=== PATIENT | female | born 1960 | race Caucasian/White ===

== ENCOUNTER 2022-05-16 11:52 | Outpatient (CLI) | payer BC, SELFPAY ==
--- NOTE | 2022-05-16 12:47 | ECG_ITS ---
Measurements Intervals [place] Rate: 66 P: 29 OH: 167 QRS: -8 QRSD: 93 T: 18 QT: 384 QTc: 404 Interpretive Statements SINUS RHYTHM BORDERLINE R WAVE PROGRESSION, ANTERIOR LEADS BORDERLINE ECG NO PREVIOUS ECG AVAILABLE FOR COMPARISON Electronically Signed On 05-16-2022 13:18:12 CDT by Jn Alcaraz D.O.
[2022-05-16 13:23] LABS: Basophils Percent Auto 0.4 % (0.2-1.2); Eosinophils Absolute Auto 0.1 K/mm3 (0-0.3); Eosinophils Percent Auto 1.4 % (0-4.4); Hematocrit 39.9 % (37.0-47.0); Hemoglobin 13.2 g/dL (12.0-15.0); Immature Granulocyte Absolute 0.02 K/mm3 (0.00-0.031); Immature Granulocyte Percent A 0.3 % (0-0.5); Lymphocytes Absolute Auto 1.08 K/mm3 (0.9-3.2); Lymphocytes Percent Auto 15.7 % (18.3-44.2); Mean Corpuscular HGB Conc 33.1 g/dl (32-36); Mean Corpuscular Hemoglobin 30.2 pg (26-34); Mean Corpuscular Volume 91.3 fl (80-100); Mean Platelet Volume 9.7 fl (7.4-10.4); Monocytes Absolute Auto 0.3 K/mm3 (0.1-0.6); Monocytes Percent Auto 4.5 % (2.6-8.5); Neutrophils Absolute Auto 5.4 K/mm3 (1.3-6.7); Neutrophils Percent Auto 77.7 % (45.5-73.1); Platelet Count Result 205 k/mm3 (150-375); Red Blood Count 4.37 M/mm3 (4.2-5.4); Red Cell Distribution Width 12.4 % (11.5-14.5); White Blood Count 6.9 K/mm3 (4.5-10.0)
[2022-05-16 13:33] LABS: Prothrombin Time 12.7 Seconds (11.1-14.7)
[2022-05-16 13:34] LABS: Alanine Aminotransferase 16 U/L (6-35); Albumin Level 4.2 g/dL (3.5-5.1); Alkaline Phosphatase 81 U/L (38-126); Anion Gap 7 mmol/L (8-16); Aspartate Amino Transferase 24 U/L (14-36); Bilirubin,Total 0.6 mg/dL (0.2-1.3); Blood Urea Nitrogen 17 mg/dL (7-17); Calcium 9.5 mg/dL (8.4-10.2); Carbon Dioxide 26 mmol/L (22-30); Chloride 105 mmol/L (98-107); Estimated Glomerular Filt Rate > 60; Glucose 89 mg/dL (65-110); Partial Thromboplastin Time 26.8 SECONDS (22.3-36.8); Sodium 138 mmol/L (137-145)
== END 2022-05-16 11:53 | disposition home or self-care (01) ==
LOC: ANHSURGERY 12:02
PROVIDERS: PCP Family Medicine; Visit Provider Urology
DX: N81.9 Female genital prolapse, unspecified (principal); Z01.818 Encounter for other preprocedural examination; R94.31 Abnormal electrocardiogram [ECG] [EKG]
CPT/HCPCS: 36415; 80053; 85025; 85610; 85730; 86850; 86900; 86901; 87077; 87086; 87088; 87186; 93005

== ENCOUNTER 2022-05-22 02:39 | Day surgery (SDC) | payer BC, SELFPAY ==
--- NOTE | 2022-05-16 12:00 | PC.NURSE ---
PRE-OP INSTRUCTIONS, PLEASE READ CAREFULLY Report to the Outpatient Waiting Room, entrance under the green pavilion located off [facility], at time _0930_ on date _05/22/22_. OR Time: _1130_. - You and your visitor will be asked to self-screen and do not enter if you have any COVID symptoms. - Only one visitor and NO children visitors are allowed at this time. - The patient visitor is requested to leave or wait in car when not with patient due to restrictions. - A mask is required within the hospital. Patients may have clear liquids (water, carbonated beverages, clear teas, apple juice) until 3 hours prior to surgery (0830 AM) with a maximum of 20 ounces. - No food from midnight until time of surgery Take the following medications with a SIP of water the morning of surgery: _TYLENOL IF NEEDED_ Medications to discontinue per DR. SWEET - _MELOXICAM & VITAMIN D3, WEEK BEFORE SURGERY (PER PT), Date to take last dose 05/16/22_ Please no make-up, nail cape verdean, hairspray, perfume, deodorant, or body powder the day of surgery. No jewelry (including any body piercings) or valuables the day of surgery, leave them at home. Please take a shower or bath the night before, or the morning of, surgery with an antibacterial soap. Wear comfortable, loose fitting clothing. - Jewelry must be removed prior to entering the operating room. Rings and piercings that are not removed may be cut off. - The hospital will not accept responsibility for valuables. - Please leave all valuables, including medications, at home the day of surgery. If you are going home after surgery, a licensed bull driver must drive you home. - NO public transportation without another adult. - We recommend that an adult stay with you for 24 hours following discharge. - We also recommend that you do not drive, make important decision, drink alcoholic beverages, or take any drugs that were not prescribed by your health care provider for at least 24 hours after your discharge time. Follow any additional instructions given to you from your surgeon. If you or anyone in your household have experienced Covid symptoms in the past week, please notify your surgeon or the nurse liaison at the phone number below for possible testing. Instructions given to ____PT and asked if any additional questions and then verbalized understanding. Patient advised to call surgeon office or pre surgery nurse liaison [phone] if any additional questions.
[2022-05-16 12:23] VITALS: BP 140/96; PULSE 84; RESP 20; TEMP 36.8; O2SAT 98; BMI 40.5
--- NOTE | 2022-05-19 08:10 | PM.IMHP ---
H&P: HPI History of Present Illness Date/Time: 05/19/22 08:10 Chief Complaint: Prolapse Narrative: 61-year-old patient. She is status post hysterectomy. She has vaginal vault prolapse. She has no stress incontinence Review of Systems Review of Systems: All systems reviewed & are unremarkable except as noted in HPI and below [facility] Social History Social History Smoking packs per day: 0.5 Smoking cigarettes per day: 10.0 Years smoked: 5 Smoking pack-years: 2.50 Smoking status: Former smoker Tobacco type: cigarettes Second hand tobacco smoke exposure: No Smoking end date: 09/10/99 Alcohol intake: current Alcohol use details: STATES 2/MONTH Substance use type: does not use Additional living arrangements comments: SON LIVES WITH PT Spiritual care concerns: No Meds Home Medications and Allergies Home Medications Medication Instructions Recorded Confirmed Type cholecalciferol (vitamin D3) 125 125 mcg PO QAM 05/16/22 05/16/22 History mcg (5,000 unit) capsule famotidine 20 mg tablet (Pepcid) 20 mg PO DAILY PRN REFLUX 05/16/22 05/16/22 History meloxicam 15 mg tablet 15 mg QAM 05/16/22 05/16/22 History Allergies Allergy/AdvReac Type Severity Reaction Status Date / Time No Known Allergies Allergy Verified 05/16/22 12:19 Exam Narrative: No acute distress Normal breathing Alert orient x3 Cystocele a + 4 Loss of apical support at +3 Assessment and Plan Assessment and plan (1) Vaginal vault prolapse: Code(s): N81.9 - Female genital prolapse, unspecified Status: Acute Assessment and Plan: Plan is for robotic sacral colpopexy. She understands the risks of bleeding, infection, damage to surrounding organs, damage to the urinary tract, bowel injury, bowel obstruction, postoperative voiding dysfunction including incontinence and retention, recurrence of prolapse, mesh related complications including exposure and extrusion, dyspareunia. She agrees to proceed
[2022-05-22] VITALS (11 sets, daily range): BP systolic 105–140; BP diastolic 42–70; PULSE 56–86; RESP 12–18; TEMP 36.1–36.2; O2SAT 94–100
[2022-05-22] MEDS: LACTATED RINGERS 1,000 ML 30 ML IV CONT ×2 (06:33→10:16)
--- NOTE | 2022-05-22 07:10 | P.PNAN_ITS ---
Anes - Initial Pre Proc Eval Procedure: Operation Date: 05/22/22 07:30 Proposed Procedures p Robotic Sacrocolpopexy - Torin Resendiz MD s Urethral Sling - Torin Resendiz MD Date/Time: 05/22/22 07:10 Surgeon: Torin Resendiz MD Pre Op Diagnosis: prolapse vaginal vault, rectocele, cystocele, inco Patient Data Age: 61 Gender: F Height: 1.6 m Weight: 99.35 kg Last Vital Signs Temp 36.1 C L 05/22/22 06:11 Pulse 86 05/22/22 06:11 Resp 18 05/22/22 06:11 BP 140/70 05/22/22 06:11 Pulse Ox 99 05/22/22 06:11 O2 Del Method Room Air 05/22/22 06:11 Allergies Allergy/AdvReac Type Severity Reaction Status Date / Time No Known Allergies Allergy Verified 05/22/22 06:52 Home Medications Medication Instructions Recorded Confirmed Type cholecalciferol (vitamin D3) 125 125 mcg PO QAM 05/16/22 05/22/22 History mcg (5,000 unit) capsule famotidine 20 mg tablet (Pepcid) 20 mg PO DAILY PRN REFLUX 05/16/22 05/22/22 History meloxicam 15 mg tablet 15 mg QAM 05/16/22 05/22/22 History Patient hx anesthesia problems: none Family hx anesthesia problems: none Results Review: All pre-operative results and documents have been reviewed as part of the pre- operative evaluation. [facility], [facility] Past Medical History Medical History (Updated 05/22/22 @ 07:11 by Nagi Ramos MD) Obesity Surgical History Surgical History (Updated 05/22/22 @ 07:11 by Nagi Ramos MD) History of total hip arthroplasty Hx of cystoscopy Social History Social History Smoking packs per day: 0.5 Smoking cigarettes per day: 10.0 Years smoked: 5 Smoking pack-years: 2.50 Smoking status: Former smoker Tobacco type: cigarettes Second hand tobacco smoke exposure: No Smoking end date: 09/10/99 Alcohol intake: current Alcohol use details: STATES 2/MONTH Substance use type: does not use Living arrangements: with family Additional living arrangements comments: SON LIVES WITH PT Spiritual care concerns: No Anes - Eval Final PreProcedure Day of Procedure 05/22/22 07:10 Patient weight: obese Heart: regular rate and rhythm Lungs: clear to auscultation Airway: Mallampati scale class II Neurological: alert and oriented Last oral intake: >/= 8 hours ASA classification: II Emergent: no Anesthetic plan: proceed Anesthesia type and monitoring: general ETT and standard monitoring Results Review: All pre-operative results and documents have been reviewed as part of the pre- operative evaluation. Informed Consent: The patient's anesthetic plan and its attendant risks and benefits were discussed with the patient/family/POA. Questions were solicited and answers provided to the satisfaction of the patient/family/POA.
--- NOTE | 2022-05-22 07:13 | WPDHPUPDATE1 ---
History and Physical Update Update Date/Time: 05/22/22 07:13 History and Physical has been reviewed, including an updated exam of the patient. There are NO changes in the patient's condition. Risks, benefits, and alternatives have been discussed and questions answered. Patient agrees to proceed with procedure.
[2022-05-22] MEDS: ceFAZolin 2 GM/D5W 50 ML 2 GM/50 ML BAG IVPB (07:30)
[2022-05-22] MEDS: levoFLOXacin 500 MG/D5W 100 ML 500 MG/100 ML BAG 100 MG IVPB (07:44)
--- NOTE | 2022-05-22 10:20 | W.PM.PROC2 ---
Procedure Note - Detailed Date of Procedure 05/22/22 Pre-op Diagnosis prolapse vaginal vault Post-op Diagnosis Same Procedure Performed Robotic assisted laparoscopic sacral colpopexy Cystoscopy Surgeon Torin Resendiz MD Anesthesia General Indications This is a woman with post hysterectomy vaginal vault prolapse. She desires surgical correction. She understands risks of bleeding, infection, diskitis, damage to surrounding organs, damage to the bowel or urinary tract, recurrence of prolapse, dyspareunia, vaginal mesh exposure, urinary tract mesh exposure, obstructive voiding requiring secondary procedure, hip and leg pain, and other perioperative intraoperative and postoperative complications. She has no stress incontinence by history or by urodynamics. We will not be performing a concomitant stress incontinence procedure. She does understand the risks of postoperative stress incontinence which may require another procedure. She is to proceed Findings See below Description of Procedure She was correctly identified. Informed consent obtained. She is brought to the operating room. She was given general anesthesia. She was placed in the lithotomy position. She was given appropriate perioperative antibiotics. She was prepped and draped in a sterile fashion. A time-out performed. I anesthetized the skin 3 fingerbreadths cephalad to the umbilicus. I incised the skin. I located the fascia. I grasped the fascia with Deion clamps. I incised the fascia sharply and a Mullins type technique. I placed Vicryl sutures for later fascial closure. I placed a midline trocar. Under direct vision placed 2 additional trocars in the right upper quadrant and 2 additional trocars in the left upper quadrant. She was placed in steep Trendelenburg. The robot was docked. I sat at the console. With the Sizer in the vagina and created a plane on the anterior and posterior vaginal wall for several cm taking great care not to injure the vagina, bladder, or rectum. Of note the bladder was very enlarged and densely adherent onto the anterior vaginal wall. There was no sign of any injury to either organ. I introduced the mesh into the vagina. I sewed the anterior leaflet of mesh on the anterior vaginal wall and posterior leaf of the mesh on the posterior vaginal wall with several sutures of 2 0 Wilson-Russ taking great care not to go through and through. I then opened up the peritoneum over the sacral promontory. I carried this incision into the cul-de-sac. I freed up the edges for later retroperitonealization of the mesh. I located the anterior longitudinal ligament of the sacrum. I cleaned off any fatty tissues. I then tensioned my mesh appropriately. I did a vaginal exam to ensure prolapse reduction without undue tension. I then sewed the proximal leaflet of mesh onto the ligament with several sutures of 2 0 Wilson-Russ. I then used a 2 0 Monocryl to meticulously retroperitonealized all mesh. I allowed the colon to go back into its normal anatomic location. There is no sign of impingement. He had an was then exited. Fascial sutures were closed. I placed additional sutures to fully close the fascia. The wounds were all irrigated and closed with 4 O Monocryl and skin glue. She was then repositioned for cystoscopy. The bladder showed no evidence of surgical artifact or tumor. There was some inflammation consistent with a recent urinary tract infection. Patency of both ureters was documented by either seeing clear yellow urine from the right ureter or plasty in a guidewire up the left ureter. The Donnelly catheter was replaced. She was awakened and transferred to the PACU in stable condition. Implants Sacral colpopexy mesh Urethral sling Packing No Pathology None sent Complications No immediate complications Condition Stable Disposition PACU
--- NOTE | 2022-05-22 10:55 | SUR.PHASEI ---
1055: Simple mask removed.
== END 2022-05-22 13:05 | disposition home or self-care (01) ==
PROVIDERS: PCP Family Medicine; Visit Provider Urology
PROC: (CPT 57425; principal; 2022-05-22 07:30)
DX: N99.3 Prolapse of vaginal vault after hysterectomy (principal); Z87.891 Personal history of nicotine dependence; E66.9 Obesity, unspecified; Z68.38 Body mass index [BMI] 38.0-38.9, adult
CPT/HCPCS: 57425; S2900; 36415; 80053; 85025; 85610; 85730; 86850; 86900; 86901; 87077; 87086; 87088; 87186; 93005; A9270; C1758; C1769; C1781; C9290; J0330; J0690; J1100; J1956; J2250; J2370; J2405; J2704; J2710; J3010; J7030; J7120

== ENCOUNTER 2023-06-07 09:58 | Outpatient (CLI) | payer BC, SELFPAY | END 2023-06-07 09:59 | disposition home or self-care (01) | LOC: ANHSURGERY 10:02 | PROVIDERS: PCP Family Medicine; Visit Provider Urology | DX: N36.42 Intrinsic sphincter deficiency (ISD) (principal) | CPT/HCPCS: 87086 ==

== ENCOUNTER 2023-06-15 01:07 | Day surgery (SDC) | payer BC, SELFPAY ==
[2023-06-05 11:21] VITALS: BMI 39.9
--- NOTE | 2023-06-05 11:29 | PC.NURSE ---
Report to the Outpatient Waiting Room, entrance under the green pavilion located off [facility], at time 6:15 on date 06/15/23. Planned Procedure Time: 8:15. Time changes happen often and if your time is changed the preop area will call you the afternoon before. - You and your visitor will be asked to self-screen and do not enter if you have any COVID symptoms. - A mask is optional within the hospital at this time. Patients may have clear liquids (water, carbonated beverages, clear teas, apple juice) until 3 hours prior to surgery with a maximum of 20 ounces. - No food from midnight until time of surgery Take the following medications with a SIP of water the morning of surgery: NONE DO NOT STOP ANY OF YOUR OTHER PRESCRIPTION MEDICATIONS PRIOR TO SURGERY ?EXCEPT THE FOLLOWING Medications to discontinue per physician: MELOXICAM Date to take last dose: PER DR. SWEET Please no make-up, nail nepalese, hairspray, perfume, deodorant, or body powder the day of surgery. No jewelry (including any body piercings) or valuables the day of surgery, leave them at home. Please take a shower or bath the night before, or the morning of, surgery with an antibacterial soap. Wear comfortable, loose fitting clothing. - Jewelry must be removed prior to entering the operating room. Rings and piercings that are not removed may be cut off. - The hospital will not accept responsibility for valuables. - Please leave all valuables, including medications, at home the day of surgery. If you are going home after surgery, a licensed medical delivery driver must drive you home. - NO public transportation without another adult if you receive anesthesia. - We recommend that an adult stay with you for 24 hours following discharge. - We also recommend that you do not drive, make important decision, drink alcoholic beverages, or take any drugs that were not prescribed by your health care provider for at least 24 hours after your discharge time. Follow any additional instructions given to you from your surgeon. If you or anyone in your household have experienced Covid symptoms in the past week, please notify your surgeon or the nurse liaison at the phone number below for possible testing. Telephone instructions given to PT - ASHU RIDINGS and asked if any additional questions and then verbalized understanding. Patient advised to call surgeon office or pre surgery nurse liaison [phone] if any additional questions.
--- NOTE | 2023-06-14 04:51 | PM.IMHP ---
H&P: HPI History of Present Illness Date/Time: 06/14/23 04:51 Chief Complaint: intrinsic sphincter deficiency Narrative: she is more than a year out prolapse operation. She has 2 Moy stress incontinence. She has minimal urethral mobility. She presents for a bulking agent Review of Systems Review of Systems: All systems reviewed & are unremarkable except as noted in HPI and below PMFSH Past Medical History Medical History Obesity Surgical History Surgical History History of total hip arthroplasty Hx of cystoscopy Social History Social History Smoking packs per day: 0.5 Smoking cigarettes per day: 10.0 Years smoked: 7 Smoking pack-years: 3.50 Smoking status: Former smoker Tobacco type: cigarettes Second hand tobacco smoke exposure: No Smoking end date: 09/10/97 Alcohol intake: current Alcohol use details: VERY RARE Substance use: never Substance use type: does not use Living arrangements: with family Additional living arrangements comments: SON Spiritual care concerns: No Meds Home Medications and Allergies Home Medications Medication Instructions Recorded Confirmed Type cholecalciferol (vitamin D3) 125 125 mcg PO QAM 05/16/22 06/05/23 History mcg (5,000 unit) capsule famotidine 20 mg tablet (Pepcid) 20 mg PO DAILY PRN REFLUX 05/16/22 06/05/23 History meloxicam 15 mg tablet 15 mg PO QAM 05/16/22 06/05/23 History diphenhydramine 25 1 tablet PO HS PRN Insomnia 06/05/23 06/05/23 History mg-acetaminophen 500 mg tablet (Tylenol PM Extra Strength) Allergies Allergy/AdvReac Type Severity Reaction Status Date / Time No Known Allergies Allergy Verified 06/05/23 11:21 Exam Narrative: no acute distress normal breathing alert oriented x3 very minimal urethral mobility Assessment and Plan Assessment and plan (1) Intrinsic sphincter deficiency (ISD): Code(s): N36.42 - Intrinsic sphincter deficiency (ISD) Status: Acute Assessment and Plan: cystoscopy with suburethral implant of bulking material. Understands risks of bleeding, infection, recurrence, persistence, damage to the urinary tract, need for repeat procedures. She agrees to proceed
[2023-06-15 06:14] VITALS: BP 144/83; PULSE 82; RESP 20; TEMP 36.6; O2SAT 100
[2023-06-15] MEDS: LACTATED RINGERS 1,000 ML 30 ML IV CONT (06:30)
--- NOTE | 2023-06-15 07:15 | WPDHPUPDATE1 ---
History and Physical Update Update Date/Time: 06/15/23 07:15 History and Physical has been reviewed, including an updated exam of the patient. There are NO changes in the patient's condition. Risks, benefits, and alternatives have been discussed and questions answered. Patient agrees to proceed with procedure.
--- NOTE | 2023-06-15 07:16 | WPDANESEPPF ---
Anes - Initial Pre Proc Eval Procedure: Operation Date: 06/15/23 07:30 Proposed Procedures p Cystoscopy, Bulking Agent - Torin Resendiz MD Date/Time: 06/15/23 07:16 Surgeon: Torin Resendiz MD Pre Op Diagnosis: intrinsic sphincter deficiency Patient Data Age: 62 Gender: F Height: 1.6 m Weight: 104.7 kg Last Vital Signs Temp 97.9 F 06/15/23 06:14 Pulse 82 06/15/23 06:14 Resp 20 06/15/23 06:14 BP 144/83 H 06/15/23 06:14 Pulse Ox 100 06/15/23 06:14 O2 Del Method Room Air 06/15/23 06:14 Allergies Allergy/AdvReac Type Severity Reaction Status Date / Time No Known Allergies Allergy Verified 06/15/23 06:15 Home Medications Medication Instructions Recorded Confirmed Type cholecalciferol (vitamin D3) 125 125 mcg PO QAM 05/16/22 06/15/23 History mcg (5,000 unit) capsule famotidine 20 mg tablet (Pepcid) 20 mg PO DAILY PRN REFLUX 05/16/22 06/15/23 History meloxicam 15 mg tablet 15 mg PO QAM 05/16/22 06/15/23 History diphenhydramine 25 1 tablet PO HS PRN Insomnia 06/05/23 06/15/23 History mg-acetaminophen 500 mg tablet (Tylenol PM Extra Strength) Patient hx anesthesia problems: none Family hx anesthesia problems: none Results Review: All pre-operative results and documents have been reviewed as part of the pre-operative evaluation. [facility] Past Medical History Medical History Obesity Surgical History Surgical History History of total hip arthroplasty Hx of cystoscopy Social History Social History Smoking packs per day: 0.5 Smoking cigarettes per day: 10.0 Years smoked: 7 Smoking pack-years: 3.50 Smoking status: Former smoker Tobacco type: cigarettes Second hand tobacco smoke exposure: No Smoking end date: 09/10/97 Alcohol intake: current Alcohol use details: VERY RARE Substance use: never Substance use type: does not use Living arrangements: with family Additional living arrangements comments: SON Spiritual care concerns: No Anes - Eval Final PreProcedure Day of Procedure 06/15/23 07:16 Patient weight: morbidly obese Heart: regular rate and rhythm Lungs: clear to auscultation Airway: Mallampati scale class III Neurological: alert and oriented Last oral intake: >/= 8 hours ASA classification: III Emergent: no Anesthetic plan: proceed Anesthesia type and monitoring: general GIVS and standard monitoring Results Review: All pre-operative results and documents have been reviewed as part of the pre-operative evaluation. Informed Consent: The patient's anesthetic plan and its attendant risks and benefits were discussed with the patient/family/POA. Questions were solicited and answers provided to the satisfaction of the patient/family/POA.
[2023-06-15] MEDS: ceFAZolin 2 GM/D5W 50 ML 2 GM/50 ML BAG IVPB (07:32)
--- NOTE | 2023-06-15 07:55 | W.PM.PROC2 ---
Procedure Note - Detailed Date of Procedure 06/15/23 Pre-op Diagnosis intrinsic sphincter deficiency Post-op Diagnosis Same Procedure Performed Cystoscopy with suburethral injection of implant material Surgeon Torin Resendiz MD Program Medical Director None Anesthesia MAC Indications This is a woman with intrinsic sphincter deficiency type stress incontinence. She is here today for intervention. We will perform a bulking agent. She understands risks of bleeding, infection, lack of efficacy, need for repeat procedures, urinary retention. She agrees to proceed Findings Open urethra consistent with intrinsic sphincter deficiency Description of Procedure She was correctly identified. Informed consent obtained. She from the operating room. She was given monitored anesthesia care. She was given appropriate perioperative antibiotics. She was placed in dorsal lithotomy position. She was prepped draped sterile fashion. Time-out performed. Examination of her bladder was normal without abnormalities ureteral orifices were normal. Urethra was open consistent with intrinsic sphincter deficiency. I chose a site 2 cm distal bladder neck in the mid urethra. Of note she had a short urethra. I injected bulking agent circumferentially forming several pillows clapping the urethra. I used 1 syringe total. At the conclusion her bladder was left partially full. She was awakened transferred to PACU in stable condition Implants Bulking agent Estimated Blood Loss 0 Drains No Packing No Pathology None sent Complications No immediate complications Condition Stable Disposition PACU
[2023-06-15 07:58] VITALS: BP 108/59; PULSE 85; RESP 16; O2SAT 100
[2023-06-15 08:10] VITALS: BP 117/73; PULSE 75; RESP 16; O2SAT 100
[2023-06-15 08:25] VITALS: BP 137/74; PULSE 68; RESP 16
[2023-06-15 08:40] VITALS: BP 141/64; PULSE 60; RESP 16
== END 2023-06-15 08:50 | disposition home or self-care (01) ==
PROVIDERS: PCP Family Medicine; Visit Provider Urology
PROC: 3E0K8GC Introduction of Other Therapeutic Substance into Genitourinary Tract, Via Natural or Artificial Opening Endoscopic (ICD-10-PCS; CPT 51715; principal; 2023-06-15 07:30)
DX: N36.42 Intrinsic sphincter deficiency (ISD) (principal); Z87.891 Personal history of nicotine dependence; E66.01 Morbid (severe) obesity due to excess calories; Z68.41 Body mass index [BMI] 40.0-44.9, adult
CPT/HCPCS: 51715; J0690; J2250; J2704; J3010; J7120; L8606